=== PATIENT | male | born 1995 | race Caucasian/White ===

== ENCOUNTER 2022-12-28 17:54 | Emergency (ER) | payer OTHER, SELFPAY ==
[2022-12-28 18:19] VITALS: BP 135/68; PULSE 96; RESP 18; TEMP 36.7; O2SAT 99
[2022-12-28 18:21] VITALS: BP 135/68; PULSE 96; RESP 18; TEMP 36.7; O2SAT 99
--- NOTE | 2022-12-28 18:37 | ED.WOUNDLAC ---
HPI - Wound/Laceration General Chief Complaint: Wound/Laceration Stated Complaint: laceration lt thumb Time Seen by Provider: 12/28/22 18:37 Source: patient Mode of arrival: ambulatory Limitations: no limitations History of Present Illness HPI narrative: 27-year-old male presented for complaint of laceration to the and of the left thumb. Injury occurred about 1/2 hour prior to arrival, states he was frozen hamburger using a spatula when it slipped and cut the finger. He used some ?gel? from a first-aid kit and then wrapped the site with gauze until it stopped bleeding. Endorses small amount of nail involvement. Patient is up-to-date on his tetanus. He denies numbness, tingling, weakness of the hand or fingers. Tetanus utd. Related Data Home Medications Medication Instructions Recorded Confirmed escitalopram oxalate 10 mg tablet mg 12/28/22 Allergies Allergy/AdvReac Type Severity Reaction Status Date / Time No Known Allergies Allergy Verified 12/28/22 18:20 Review of Systems Review of Systems: CONSTITUTIONAL: Denies body aches, fever, chills, or sweats. EYES: Denies visual changes, redness, or discharge. ENT: Denies rhinorrhea, congestion CARDIOVASCULAR: Denies chest pain, palpitations, or edema. RESPIRATORY: Denies cough or dyspnea. GASTROINTESTINAL: Denies abdominal pain, nausea, vomiting, or diarrhea. SKIN: per HPI MUSCULOSKELETAL: Denies back pain, joint pain, or myalgia. NEUROLOGIC: Denies headache, numbness, tingling, or weakness. [facility] Past Medical History Medical History (Updated 12/28/22 @ 18:50 by Tiffani Hand, DOM) No pertinent past medical history Comments At time of signature, I have reviewed and agree with nursing past medical, surgical, social and family history unless otherwise noted. Please see nursing chart for further information. There is no relevant family history pertinent to the presenting complaint Exam Narrative: GENERAL: Well-appearing HEAD: Normocephalic, atraumatic. EYES: conjunctivae clear, and EOMI. ENT: Mucous membranes moist. Oropharynx without edema, erythema or lesions. NECK: Supple. No lymphadenopathy CHEST: Clear to auscultation. HEART: Regular rate and rhythm. SKIN: Warm, dry. Distal end of left thumb with linear laceration approx 1cm, extending approx 1mm into the edge of the nail, no subungual hematoma or swelling; wound slightly gaping. No active bleeding. Sensation intact. Full ROM. NEURO: Alert and oriented x3. Extrem: Hand/finger images: 1. left thumb lac site 2. minimal lac into nail edge Course Course Emergency Course: Patient is aware of diagnosis, understands and agrees to treatment plan. Anticipatory guidance given. Patient agrees to follow-up as directed and is aware of reasons to seek care at the emergency department. Portions of this record may have been created with voice recognition software Level of Care: Express Care Visit Vital Signs Vital signs: Vital Signs Temperature 98.0 F 12/28/22 18:19 Pulse Rate 96 12/28/22 18:19 Respiratory Rate 18 12/28/22 18:19 Blood Pressure 135/68 12/28/22 18:19 Pulse Oximetry 99 12/28/22 18:19 Oxygen Delivery Room Air 12/28/22 18:19 Temperature 98.0 F 12/28/22 18:21 Pulse Rate 96 12/28/22 18:21 Respiratory Rate 18 12/28/22 18:21 Blood Pressure 135/68 12/28/22 18:21 Pulse Oximetry 99 12/28/22 18:21 Oxygen Delivery Room Air 12/28/22 18:21 Reviewed Procedures Laceration Left thumb: Date: 12/28/22 Size (cm): 1 Description: linear and clean Depth: simple, single layer Local Anesthetic: lidocaine 1% (local) Amount of anesthesia used (mL): 0.5 Pre-repair: wound explored and other (soaked and cleansed with sterile water and wound cleanser) ====== Skin Level ====== Skin layer closed with: nylon Size (cm): 5-0 Number of sutures: 3 Technique: s
== END 2022-12-28 19:20 | disposition home or self-care (01) ==
PROVIDERS: Emergency Provider Nurse Practitioner Family
DX: S61.012A Laceration without foreign body of left thumb without damage to nail, initial encounter (principal); W27.4XXA Contact with kitchen utensil, initial encounter
CPT/HCPCS: 12001; 99212; G0463

== ENCOUNTER 2023-01-05 17:36 | Emergency (ER) | payer OTHER, SELFPAY ==
[2023-01-05 17:44] VITALS: BP 128/76; PULSE 60; RESP 14; TEMP 36.7; O2SAT 98
[2023-01-05 17:45] VITALS: BP 128/76; PULSE 60; RESP 14; TEMP 36.7; O2SAT 98
--- NOTE | 2023-01-05 17:55 | ED.SKABFB ---
HPI - Skin/Abscess/Foreign Bdy General Chief complaint: Skin/Abscess/Foreign Body Stated complaint: Suture Removal Finger Lt Hand Time Seen by Provider: 01/05/23 17:50 Source: patient and RN notes reviewed Mode of arrival: ambulatory Limitations: no limitations History of Present Illness HPI narrative: Patient presents today for suture removal. He had 3 sutures placed in his left thumb 1 week ago after cutting it on a spatula at work. Denies any difficulties with the sutures. Related Data Home Medications Medication Instructions Recorded Confirmed escitalopram oxalate 10 mg tablet 20 mg PO DAILY 12/28/22 01/05/23 Allergies Allergy/AdvReac Type Severity Reaction Status Date / Time No Known Allergies Allergy Verified 01/05/23 17:44 Review of Systems Review of Systems: CONSTITUTIONAL: Denies body aches, fever, chills, or sweats. EYES: Denies visual changes, redness, or discharge. ENT: Denies rhinorrhea, congestion, sore throat, or otalgia. CARDIOVASCULAR: Denies chest pain, palpitations, or edema. RESPIRATORY: Denies cough or dyspnea. GASTROINTESTINAL: Denies abdominal pain, nausea, vomiting, or diarrhea. GENITOURINARY: Denies dysuria or hematuria. SKIN: + laceration to left thumb MUSCULOSKELETAL: Denies back pain, joint pain, or myalgia. NEUROLOGIC: Denies headache, numbness, tingling, or weakness. PSYCH: Denies depression or anxiety. [facility] Past Medical History Medical History No pertinent past medical history Comments At time of signature, I have reviewed and agree with nursing past medical, surgical, social and family history unless otherwise noted. Please see nursing chart for further information. There is no relevant family history pertinent to the presenting complaint Exam Narrative: GENERAL: Well-appearing, well-nourished, and in no acute distress. HEAD: Normocephalic, atraumatic. EYES: EOMI. No redness or drainage. Conjunctivae normal. ENT: Mucous membranes pink and moist. NECK: Normal AROM. CHEST: No respiratory distress. EXTREMITIES: Normal range of motion. No edema. SKIN: Warm, dry, no rash. Capillary refill normal. Normal skin turgor. Approximately 1 cm healing laceration to the tip of the left thumb with 3 intact sutures. NEURO: No focal deficits. Alert and oriented x3. Gait steady. PSYCH: Normal affect. No signs of depression or anxiety. Course Course Emergency Course: Sutures were removed without incident. Level of Care: Express Care Visit Vital Signs Vital signs: Vital Signs Temperature 98.0 F 01/05/23 17:44 Pulse Rate 60 01/05/23 17:44 Respiratory Rate 14 01/05/23 17:44 Blood Pressure 128/76 01/05/23 17:44 Pulse Oximetry 98 01/05/23 17:44 Oxygen Delivery Room Air 01/05/23 17:44 Temperature 98.0 F 01/05/23 17:45 Pulse Rate 60 01/05/23 17:45 Respiratory Rate 14 01/05/23 17:45 Blood Pressure 128/76 01/05/23 17:45 Pulse Oximetry 98 01/05/23 17:45 Oxygen Delivery Room Air 01/05/23 17:45 MDM - Skin/Abscess/Foreign Bdy MDM Narrative Medical decision making narrative: Laceration seems to be healing without signs of infection. Sutures were removed. Anticipatory guidance given. Differential Diagnosis Differential diagnosis: Likely cellulitis and other (Laceration) Critical Care Time Critical Care Time Critical Care Time: No Discharge Plan Discharge Clinical Impression: Visit for suture removal Patient Disposition: Home, Self-Care Condition: Stable Instructions: Stitches Removal (ED) Additional Instructions: Your sutures have been removed. There are no signs of infection at this time. Follow-up with your PCP with any concerns. Your blood pressure was elevated above 120/80 today at Urgent Care. This puts you above the threshold for follow up. Please schedule a followup visit with your personal physician as soon as possible, pipe ervin
== END 2023-01-05 17:58 | disposition home or self-care (01) ==
PROVIDERS: Emergency Provider Nurse Practitioner
DX: Z48.02 Encounter for removal of sutures (principal)
CPT/HCPCS: 99211; G0463